=== PATIENT | female | born 1940 | race Caucasian/White ===

== ENCOUNTER 2020-06-15 13:33 | Outpatient (CLI) | payer MEDICARE ==
[2020-06-15 15:08] LABS: Bilirubin Neg (Negative); Blood, Urine Negative (Negative); Clarity Cloudy (Clear); Glucose, Urine (Dipstick) Normal (Negative); Ketone, Urine Negative (Negative); Leukocyte 100 (Negative); Nitrite Negative (Negative); Protein, Urine (Dipstick) Negative (Neg-Trace); Specific Gravity, Urine 1.005 (1.002-1.036); Urobilinogen Normal mg/dL (Less than 2)
[2020-06-15 15:14] LABS: Hemoglobin 11.9 g/dL (12.0-15.5); Mean Corpuscular HGB CONC 33.1 g/dL (32.0-36.0); Mean Corpuscular Volume 93.8 fl (81.6-98.3); Mean Platelet Volume 10.5 fl (7.4-10.4); Platelet Count 323 10x3/uL (150-450); RBC Distribution Width 12.9 % (11.5-14.5); Red Blood Cell (RBC) Count 3.84 10x6/uL (3.90-5.03); White Blood Cell (WBC) Count 5.8 10x3/uL (3.5-10.5)
[2020-06-15 15:32] LABS: INR-International Normal Ratio 0.9; Prothrombin Time 10.5 sec (9.5-12.1)
[2020-06-15 15:32] LABS: Bacteria/HPF 3+ HPF (None Seen); RBC/HPF 0-3 HPF (0-3); Squamous Epithelial 0-3 HPF (0-3)
[2020-06-15 15:39] LABS: Anion Gap 14 mmol/L (10-20); BUN (Urea Nitrogen) 12 mg/dL (9.8-20.1); Calc. Creatinine Clearance 0 mL/min (70-130); Calcium 9.2 mg/dL (7.8-10.44); Carbon Dioxide 27 mmol/L (23-31); Chloride 96 mmol/L (98-107); Glucose 84 mg/dL (83-110); Sodium 132 mmol/L (136-145)
[2020-06-16 04:12] LABS: SARS-CoV-2 PCR by NAA Not Detected (NotDetected)
== END 2020-06-15 13:34 | disposition home or self-care (01) ==
LOC: LABBT 13:33
PROVIDERS: ATTEND Orthopaedic Surgery
DX: Z01.818 Encounter for other preprocedural examination (principal); M17.12 Unilateral primary osteoarthritis, left knee; Z20.822 Contact with and (suspected) exposure to COVID-19
CPT/HCPCS: 80048; 81001; 85027; 85610; 87081; U0003; U0005; 87635; 93005; 93010

== ENCOUNTER 2020-07-06 13:47 | Outpatient (CLI) | payer MEDICARE ==
[2020-07-07 01:00] LABS: SARS-CoV-2 PCR by NAA Not Detected (NotDetected)
== END 2020-07-06 13:48 | disposition home or self-care (01) ==
LOC: LABBT 13:47
PROVIDERS: ATTEND Orthopaedic Surgery
DX: Z01.812 Encounter for preprocedural laboratory examination (principal); M17.12 Unilateral primary osteoarthritis, left knee; Z20.822 Contact with and (suspected) exposure to COVID-19
CPT/HCPCS: U0003; U0005; 87635

== ENCOUNTER 2020-07-11 06:34 | Inpatient (IN) | payer MEDICARE ==
[2020-07-08 13:59] VITALS: BMI 38.6
[2020-07-11] MEDS ORDERED: Tranexamic Acid 1,000 MG/10 ML VIAL ONE (06:52)
[2020-07-11] MEDS ORDERED: Sodium Chloride 0.9% 100 ML ONE (06:53)
[2020-07-11] MEDS ORDERED: Vancomycin 1.5 GRAM/300 ML BAG 1.5 GM in Premix Bag 1 BAG IVPB SCH (07:00)
[2020-07-11] MEDS ORDERED: Fentanyl 100 MCG/2 ML VIAL ONE ×4 (08:12→12:21)
[2020-07-11] MEDS ORDERED: Midazolam HCl 2 mg/2 ml Vial ONE (08:12)
[2020-07-11] MEDS ORDERED: Lidocaine 1% (PF) 30 ML VIAL ONE (08:12)
[2020-07-11] MEDS ORDERED: Dexamethasone 20 MG/5 ML VIAL ONE (09:52)
[2020-07-11] MEDS ORDERED: Ondansetron PF 4 MG/2 ML Vial ONE (09:52)
[2020-07-11] MEDS ORDERED: Ropivacaine 0.5% HCl/PF (150 MG/30 ML VIAL) ONE (09:52)
[2020-07-11] MEDS ORDERED: PROPOFOL 200 MG/20 ML VIAL ONE (09:52)
[2020-07-11] MEDS ORDERED: Ropivacaine 2% HCl/PF (20 MG/10 ML VIAL) ONE (09:52)
[2020-07-11] MEDS ORDERED: Zolpidem Tartrate 5 MG TAB PO PRN (09:56)
[2020-07-11] MEDS ORDERED: Ondansetron PF 4 MG/2 ML Vial IVP PRN ×2 (09:56→10:15)
[2020-07-11] MEDS ORDERED: Acetaminophen 325 MG TAB PO PRN (09:56)
[2020-07-11] MEDS ORDERED: Promethazine HCl 25 MG/ML VIAL IM PRN ×3 (09:56→10:34)
[2020-07-11] MEDS ORDERED: HYDROcodone/Acetaminophen 10/325 mg Tablet PO PRN ×2 (09:56)
[2020-07-11] MEDS ORDERED: diphenhydrAMINE 25 MG CAP PO PRN (09:56)
[2020-07-11] MEDS ORDERED: Fentanyl 100 MCG/2 ML VIAL IV PRN (10:08)
[2020-07-11] MEDS ORDERED: Ropivacaine HCl/PF 250 ML in Premix Bag 1 BAG NERVE BLCK SCH (10:15)
[2020-07-11] MEDS ORDERED: traMADol HCl 50 MG TAB PO PRN ×2 (10:15)
[2020-07-11] MEDS ORDERED: Meperidine HCl/PF 25 MG/ML VIAL SLOW IVP PRN (10:34)
[2020-07-11] MEDS ORDERED: PACU-Morphine 4MG/ML VIAL SLOW IVP PRN (10:34)
[2020-07-11] MEDS ORDERED: Promethazine HCl 25 MG/ML VIAL SLOW IVP PRN (10:34)
[2020-07-11] MEDS ORDERED: Ketorolac Tromethamine 30 MG/ML VIAL ONE (12:33)
[2020-07-11] MEDS ORDERED: Ketorolac Tromethamine 30 MG/ML VIAL IVP SCH (14:00)
[2020-07-11] MEDS: Sodium Chloride 0.9% 1,000 ML IV SCH ×2 (14:10→20:15)
[2020-07-11] MEDS: Ketorolac Tromethamine 30 MG/ML VIAL IVP SCH ×2 (14:11→17:15)
[2020-07-11] MEDS ORDERED: CEFAZOLIN 2 GM in Premix Bag 1 BAG IVPB SCH (15:00)
[2020-07-11] MEDS: HYDROcodone/Acetaminophen 10/325 mg Tablet PO PRN ×2 (15:21→19:03)
[2020-07-11] MEDS: CEFAZOLIN 2 GM in Premix Bag 1 BAG IVPB SCH (17:14)
[2020-07-11] MEDS: Gabapentin 300 MG CAP PO SCH (20:16)
[2020-07-11] MEDS: Oxybutynin 5 MG TAB PO SCH (20:16)
[2020-07-11] MEDS: Aspirin 81 mg Enteric Coated Tablet PO SCH (20:16)
[2020-07-12] MEDS: Ketorolac Tromethamine 30 MG/ML VIAL IVP SCH ×5 (00:15→23:20)
[2020-07-12] MEDS: Zolpidem Tartrate 5 MG TAB PO PRN ×2 (00:35→20:23)
[2020-07-12] MEDS: CEFAZOLIN 2 GM in Premix Bag 1 BAG IVPB SCH (02:54)
[2020-07-12 05:56] LABS: Hemoglobin 10.9 g/dL (12.0-16.0); Mean Corpuscular HGB CONC 32.1 g/dL (32.0-36.0); Mean Corpuscular Hemoglobin 30.3 pg (27.0-31.0); Mean Corpuscular Volume 94.4 fL (78.0-98.0); Platelet Count 371 thou/uL (130-400); RBC Distribution Width 11.6 % (11.5-14.5); Red Blood Cell (RBC) Count 3.61 mill/uL (4.20-5.40); White Blood Cell (WBC) Count 9.8 thou/uL (4.8-10.8)
[2020-07-12] MEDS: Sodium Chloride 0.9% 1,000 ML IV SCH ×2 (06:09→16:11)
[2020-07-12] MEDS: Multivitamin W/ Minerals 1 TAB PO SCH (08:38)
[2020-07-12] MEDS: Senokot S 8.6-50 MG TAB PO SCH ×2 (08:38→20:24)
[2020-07-12] MEDS: Aspirin 81 mg Enteric Coated Tablet PO SCH ×2 (08:38→20:23)
[2020-07-12] MEDS: Losartan 25 MG TAB PO SCH (08:39)
[2020-07-12] MEDS: Ferrous Gluconate 324 MG TAB PO SCH ×2 (08:39→17:40)
[2020-07-12] MEDS: Spironolactone 25 MG TAB PO SCH (08:39)
[2020-07-12] MEDS: Oxybutynin 5 MG TAB PO SCH ×2 (08:39→20:24)
[2020-07-12] MEDS: Hydrochlorothiazide 25 MG TAB PO SCH (08:39)
[2020-07-12] MEDS ORDERED: Aspirin 81 mg Enteric Coated Tablet PO SCH (09:00)
[2020-07-12] MEDS: Gabapentin 300 MG CAP PO SCH (20:24)
[2020-07-12] MEDS: HYDROcodone/Acetaminophen 10/325 mg Tablet PO PRN (22:03)
[2020-07-13] MEDS: Sodium Chloride 0.9% 1,000 ML IV SCH ×2 (02:55→12:00)
[2020-07-13] MEDS: Ketorolac Tromethamine 30 MG/ML VIAL IVP SCH (06:05)
[2020-07-13] MEDS: HYDROcodone/Acetaminophen 10/325 mg Tablet PO PRN ×2 (06:05→14:04)
[2020-07-13] MEDS: Ferrous Gluconate 324 MG TAB PO SCH (08:39)
[2020-07-13] MEDS: Multivitamin W/ Minerals 1 TAB PO SCH (08:40)
[2020-07-13] MEDS: Losartan 25 MG TAB PO SCH (08:40)
[2020-07-13] MEDS: Spironolactone 25 MG TAB PO SCH (08:40)
[2020-07-13] MEDS: Hydrochlorothiazide 25 MG TAB PO SCH (08:40)
[2020-07-13] MEDS: Senokot S 8.6-50 MG TAB PO SCH (08:40)
[2020-07-13] MEDS: Aspirin 81 mg Enteric Coated Tablet PO SCH (08:40)
[2020-07-13] MEDS: Oxybutynin 5 MG TAB PO SCH (08:40)
[2020-07-13 14:59] VITALS: BP 128/57; TEMP 98.2
== END 2020-07-13 14:20 | disposition home or self-care (01) | DRG 470 ==
LOC: SDC 06:34 → SJJU 09:56
PROVIDERS: ADMIT Orthopaedic Surgery; ATTEND Orthopaedic Surgery
PROC: 0SRD0J9 Replacement of Left Knee Joint with Synthetic Substitute, Cemented, Open Approach (ICD-10-PCS; principal; 2020-07-11)
DX: M17.12 Unilateral primary osteoarthritis, left knee (principal); Z20.822 Contact with and (suspected) exposure to COVID-19; M10.9 Gout, unspecified; K21.9 Gastro-esophageal reflux disease without esophagitis; G43.909 Migraine, unspecified, not intractable, without status migrainosus; G44.89 Other headache syndrome; Z96.651 Presence of right artificial knee joint; Z98.42 Cataract extraction status, left eye; Z98.41 Cataract extraction status, right eye; Z90.710 Acquired absence of both cervix and uterus; Z82.49 Family history of ischemic heart disease and other diseases of the circulatory system; Z79.899 Other long term (current) drug therapy; Z79.82 Long term (current) use of aspirin; Z82.3 Family history of stroke; Z88.6 Allergy status to analgesic agent; Z88.5 Allergy status to narcotic agent; Z88.8 Allergy status to other drugs, medicaments and biological substances; Z87.891 Personal history of nicotine dependence
CPT/HCPCS: 36415; 85027; C1713; C1776; J0690; J1100; J1885; J2001; J2250; J2405; J2704; J2795; J3010; J3370; J3490